=== PATIENT | male | born 1960 | race Caucasian/White ===

== ENCOUNTER 2016-11-29 09:10 | Emergency (ER) | payer MEDICARE ==
[2016-11-29] MEDS ORDERED: MOTRIN 600 MG PO ONE (09:57)
--- NOTE | 2016-11-29 09:57 | ERPHSYRPT ---
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 with productive cough, white sputum, along with fever, chills, sore throat, gen. malaise/myalgia and dizziness over past 7 days. Pt. denies any SOB, but noted ant. chest discomfort with cough/inspiration o/w no constant chest pain. Pt. states temp 101, but have not used any meds for symptoms Timing/Duration: day(s) (7) Cough Quality/Degree: mild, productive cough, sputum (white) Modifying Factors: Improves With: coughing (worsens), deep breath (worsens) Associated Symptoms: fever, chills, cough, muscle aches, nasal congestion, nasal drainage, sore throat, No chest pain/soreness, No dizziness, No headache, No shortness of breath International travel in last 2 weeks: No Allergies/Adverse Reactions: No Known Drug Allergies Allergy (Unverified 11/29/16 09:34) Hx Tetanus, Diphtheria Vaccination/Date Given: No Hx Influenza Vaccination/Date Given: No Hx Pneumococcal Vaccination/Date Given: No Immunizations Up to Date: Yes - Review of Systems Constitutional: Chills, Fatigue, Weakness Eyes: No Symptoms Ears, Nose, & Throat: Nose Congestion, Nose Discharge, Throat Pain, No Painful Swallowing Respiratory: Cough, No Dyspnea Cardiac: No Chest Pain, No Edema, No Syncope Abdominal/Gastrointestinal: No Abdominal Pain, No Nausea, No Vomiting, No Diarrhea Genitourinary Symptoms: No Dysuria Musculoskeletal: No Back Pain, No Neck Pain Skin: No Rash Neurological: No Dizziness, No Focal Weakness, No Sensory Changes Psychological: No Symptoms Endocrine: No Symptoms All Other Systems: Reviewed and Negative - Past Medical History Pertinent Past Medical History: No - Past Surgical History Past Surgical History: Yes Gastrointestinal: Appendectomy, Cholecystectomy Musculoskeletal: Orthopedic Surgery - Social History Smoking Status: Never smoker Exposure to second hand smoke: No Drug Use: none Patient Lives Alone: No - Nursing Vital Signs Nursing Vital Signs: Initial Vital Signs Temperature 97.5 F 11/29/16 09:30 Pulse Rate 86 11/29/16 09:30 Respiratory Rate 18 11/29/16 09:30 Blood Pressure 137/76 11/29/16 09:30 O2 Sat by Pulse Oximetry 96 11/29/16 09:30 Pain Scale Pain Intensity 7 - Physical Exam General Appearance: no apparent distress, alert Eye Exam: PERRL/EOMI, eyes nml inspection Ears, Nose, Throat Exam: TMs normal, moist mucous membranes, pharyngeal erythema Neck Exam: normal inspection, non-tender, supple, full range of motion Respiratory Exam: normal breath sounds, lungs clear, No respiratory distress Cardiovascular Exam: regular rate/rhythm, normal heart sounds Gastrointestinal/Abdomen Exam: soft, No tenderness Back Exam: normal inspection, No CVA tenderness, No vertebral tenderness Extremity Exam: normal inspection, normal range of motion Neurologic Exam: alert, oriented x 3, cooperative, normal mood/affect, sensation nml, No motor deficits Skin Exam: normal color, warm, dry, No rash Lymphatic Exam: No adenopathy SpO2: 96 Oxygen Delivery: Room Air - Course Nursing assessment & vital signs reviewed: Yes - Radiology Exams Chest X-ray Interpretation: Teleradiologist Report, No Pneumonia Ordered Tests: Active Orders 24 hr Category Date Time Status CHEST 1 VIEW (PORTABLE) Stat Exams 11/29/16 09:37 Completed CBC W DIFF Stat Lab 11/29/16 10:25 Completed CMP Stat Lab 11/29/16 10:25 Received CULTURE, THROAT Stat Lab 11/29/16 10:25 Received STREP SCREEN-BETA A Stat Lab 11/29/16 10:25 Completed Medication Summary Discontinued Medications Generic Name Dose Route Start Last Admin Trade Name Marily PRN Reason Stop Dose Admin Ibuprofen 600 mg 11/29/16 09:57 11/29/16 10:07 Motrin 600 Mg PO 11/29/16 09:58 600 mg STAT ONE Administration Ibuprofen Confirm 11/29/16 10:05 Motrin 600 Mg Administered 11/29/16 10:06 Dose 600 mg .ROUTE .STK-MED ONE Lab/Rad Data: Laboratory Result Diagrams 11/29/16 10:25 Laboratory Results 11/29/16 11/29/16 Range/Units 10:25 10:25 WBC 8.5 (4.0-10.5) K/mm3 RBC 5.13 (4.1-5.6) M/mm3 Hgb 13.8 (12.5-18.0) gm/dl Hct 42.0 (42-50) % MCV 81.9 (78-100) fl MCH 26.9 (26-32) pg MCHC 32.9 (32-36) g/dl RDW 18.1 H (11.5-14.0) % Plt Count 259 (150-450) K/mm3 MPV 10.4 H (6-9.5) fl Gran % 70.7 H (36.0-66.0) % Lymphocytes % 17.4 L (24.0-44.0) % Monocytes % 8.4 (0.0-12.0) % Eosinophils % 2.9 (0.00-5.0) % Basophils % 0.6 (0.0-0.4) % Basophils # 0.05 (0-0.4) Streptococcus Screen NEGATIVE (Negative) - Progress Progress: improved Air Movement: good Progress Note: 11/29/16 09:57 Pt. given Motrin for discomfort Blood Culture(s) Obtained: No Antibiotics given: Yes Counseled pt/family regarding: lab results, diagnosis, rad results - Departure Time of Disposition: 10:47 Departure Disposition: Home Clinical Impression: Bronchitis Condition: Stable Critical Care Time: No Instructions: Bronchitis, Cough -- Adult Additional Instructions: Tylenol or Motrin for fever/pain Chloraseptic Sprays or throat lozenges for sore throat Return for worse cough, short of breath, fever, vomiting, or any problems Prescriptions: Azithromycin [Zithromax Tri-Emir] 500 mg PO DAILY #3 tablet
[2016-11-29] MEDS ORDERED: MOTRIN 600 MG ONE (10:05)
--- NOTE | 2016-11-29 10:05 | XRAY ---
Indication: Cough. Comparison: None Portable chest demonstrates normal heart and lungs. Bony thorax intact.
[2016-11-29 10:32] LABS: BASOPHIL % 0.6 % (0.0-0.4); Eosinophil % 2.9 % (0.00-5.0); Granulocytes % 70.7 % (36.0-66.0); Lymphocytes % 17.4 % (24.0-44.0); Mean Cell Volume 81.9 fl (78-100); Mean Corpuscular Hemoglobin 26.9 pg (26-32); Mean Platelet Volume 10.4 fl (6-9.5); Monocytes % 8.4 % (0.0-12.0); Platelet Count 259 K/mm3 (150-450); Red Blood Count 5.13 M/mm3 (4.1-5.6); Red Cell Distribution Width 18.1 % (11.5-14.0); White Blood Count 8.5 K/mm3 (4.0-10.5)
[2016-11-29 10:52] LABS: ALBUMIN 3.3 g/dL (3.4-5.0); ALKALINE PHOSPHATASE 132 U/L (46-116); ANION GAP 16.1 MEQ/L (5-15); BLOOD UREA NITROGEN 11 mg/dL (9-20); CHLORIDE 104 mEq/L (98-107); Carbon Dioxide 23.1 mEq/L (21-32); Glucose 87 MG/DL (70-110); Potassium 3.7 mEq/L (3.5-5.1); SGOT/AST 19 U/L (15-37); SGPT/ALT 19 U/L (12-78); SODIUM 140 mEq/L (136-145); Total Protein 7.5 gm/dL (6.4-8.2)
[2016-11-29 11:11] VITALS: BP 130/68; PULSE 90; O2SAT 97
== END 2016-11-29 11:09 | disposition home or self-care (01) ==
LOC: ED 09:10
DX: J40 Bronchitis, not specified as acute or chronic (principal)
CPT/HCPCS: 36415; 71010; 80053; 85025; 87070; 87430; 87631; 99282; 99283; A9270-GY